=== PATIENT | male | born 1990 | race Caucasian/White ===

== ENCOUNTER 2024-07-02 12:52 | Outpatient (REF) | payer OTHER, SELFPAY | END 2024-07-02 12:53 | disposition home or self-care (01) | LOC: HO.BBR 12:52 | PROVIDERS: PCP Internal Medicine; Visit Provider Nurse Practitioner Adult Health | DX: Z13.89 Encounter for screening for other disorder (principal) ==

== ENCOUNTER 2024-07-30 13:07 | Outpatient (REF) | payer OTHER, SELFPAY | END 2024-07-30 13:08 | disposition home or self-care (01) | LOC: HO.BBR 13:07 | PROVIDERS: Visit Provider Nurse Practitioner Adult Health | DX: Z13.89 Encounter for screening for other disorder (principal) ==

== ENCOUNTER 2024-08-13 13:05 | Outpatient (REF) | payer OTHER, SELFPAY | END 2024-08-13 13:06 | disposition home or self-care (01) | LOC: HO.BBR 13:05 | PROVIDERS: PCP Internal Medicine; Visit Provider Nurse Practitioner Adult Health | DX: Z13.89 Encounter for screening for other disorder (principal) ==

== ENCOUNTER 2024-08-27 12:59 | Outpatient (REF) | payer OTHER, SELFPAY | END 2024-08-27 13:00 | disposition home or self-care (01) | LOC: HO.BBR 12:59 | PROVIDERS: PCP Internal Medicine; Visit Provider Nurse Practitioner Adult Health | DX: Z13.89 Encounter for screening for other disorder (principal) ==

== ENCOUNTER 2024-09-20 13:02 | Outpatient (REF) | payer OTHER, SELFPAY | END 2024-09-20 13:03 | disposition home or self-care (01) | LOC: HO.BBR 13:02 | PROVIDERS: PCP Internal Medicine; Visit Provider Nurse Practitioner Adult Health | DX: Z13.89 Encounter for screening for other disorder (principal) ==

== ENCOUNTER 2024-10-15 12:59 | Outpatient (REF) | payer OTHER, SELFPAY | END 2024-10-15 13:00 | disposition home or self-care (01) | LOC: HO.BBR 12:59 | PROVIDERS: PCP Internal Medicine; Visit Provider Nurse Practitioner Adult Health | DX: Z13.89 Encounter for screening for other disorder (principal) ==

== ENCOUNTER 2024-11-13 12:58 | Outpatient (REF) | payer OTHER, SELFPAY | END 2024-11-13 12:59 | disposition home or self-care (01) | LOC: HO.BBR 12:58 | PROVIDERS: PCP Internal Medicine; Visit Provider Nurse Practitioner Adult Health | DX: Z13.89 Encounter for screening for other disorder (principal) ==